=== PATIENT | male | born 2000 | race African-American/Black ===

== ENCOUNTER 2018-08-04 06:33 | Day surgery (SDC) | payer OTHER ==
[2018-08-04] VITALS (12 sets, daily range): BP systolic 106–157; BP diastolic 48–77; PULSE 48–76; RESP 13–20; Ht 190.5 cm; Wt 80.8 kg
[~2018-08-04] VITALS: Ht 190.5 cm; Wt 80.8 kg
[2018-08-04] MEDS ORDERED: LIDOCAINE 2% (SDV) 5 ML INJ ONE (07:00)
[2018-08-04] MEDS ORDERED: SEVOFLURANE 15 MIN ONE (07:00)
--- NOTE | 2018-08-04 07:53 | PREAC ---
Date/Time of Note Date/Time of Note DATE: 08/04/18 TIME: 07:51 Anesthesia Eval and Record Evaluation Time Pre-Procedure Interview DATE: 08/04/18 TIME: 07:51 Age 18 Sex male NPO: 8 hrs Preoperative diagnosis right hand osteomyelitis Planned procedure i and d right hand Past Medical History Past Medical History: Includes Pulm: Asthma Surgery & Anesthesia Issues No known issue Meds Anticoagulation: No Beta Jenniffer within 24 hr: No Reason Beta Jenniffer not given: Pt. not on B-Jenniffer Meds reviewed: Yes Allergies Coded Allergies: aspirin (Verified Allergy, Unknown, 08/04/18) ibuprofen (Verified Allergy, Unknown, 08/04/18) Allergies Reviewed: Yes Labs/Studies Labs Reviewed: Reviewed by anesthesiologist Result Diagram: 08/04/18 0635 Laboratory Tests 08/04/18 06:35 test: N/A Pre-procedure Exam Airway: Adequate mouth opening, Adequate thyromental dist Mallampati: Mallampati I Teeth: Normal Lung: Normal Heart: Normal ASA Physical Status ASA physical status: 2 Emergency: None Planned Anesthetic General/MAC: LMA Planned Pain Management Parenteral pain med Pre-operative Attestations Prior to commencing anesthesia and surgery, the patient was re-evaluated, there was verification of: *The patient's identity *The results of appropriate recent lab work and preoperative vital signs *The above evaluation not changing prior to induction *Anesthetic plan, risk benefits, alternative and complications discussed with patient/family; questions answered; patient/family understands, accepts and wishes to proceed. NADINE CAMILO Aug 04, 2018 07:53
[2018-08-04] MEDS ORDERED: VANC1.2511 IV (08:02)
[2018-08-04] MEDS ORDERED: PROPOFOL 100 ML ONE (08:15)
[2018-08-04] MEDS ORDERED: POLYMYXIN/BACITRACIN 1L IRRIG ONE (09:04)
[2018-08-04] MEDS ORDERED: BUPIVACAINE 0.5% (SDV) 30 ML INJ ONE (09:04)
[2018-08-04] MEDS ORDERED: CEFAZOLIN 1 GM INJ ONE (09:13)
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
--- NOTE | 2018-08-04 09:22 | PAC ---
Date/Time of Note Date/Time of Note DATE: 08/04/18 TIME: 09:21 Post-Anesthesia Notes Post-Anesthesia Note Last documented vital signs Vital Signs Date Temp Pulse Resp B/P (MAP) Pulse Ox O2 O2 Flow FiO2 Time Delivery Rate 08/04/18 97.9 58 20 119/68 100 0922 (85) Activity: WNL Respiratory function: WNL Cardiovascular function: WNL Mental status: Baseline Pain reasonably controlled: Yes Hydration appropriate: Yes Nausea/Vomiting absent: Yes NADINE CAMILO Aug 04, 2018 09:22
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
[2018-08-04] MEDS ORDERED: MIDAZOLAM 1 MG/ML 2 ML INJ IV PRN (09:30)
[2018-08-04] MEDS ORDERED: HYDROmorphONE 1 MG/5 ML IV SYRINGE IV PRN ×3 (09:30)
[2018-08-04] MEDS ORDERED: hydrALAzine 20 MG INJ IV PRN (09:30)
[2018-08-04] MEDS ORDERED: ONDANSETRON 4 MG INJ IV PRN (09:30)
[2018-08-04] MEDS ORDERED: ALBUTEROL 0.083% (NEB) 2.5 MG/3 ML AMP HHN PRN (09:30)
[2018-08-04] MEDS ORDERED: FENTAnyl 50 MCG/ML VIAL IV PRN ×3 (09:30)
[2018-08-04] MEDS ORDERED: EPHEDrine SULFATE 50 MG/5 ML SYG IV PRN (09:30)
[2018-08-04] MEDS ORDERED: LABETALOL HCL 20MG INJ IV PRN (09:30)
[2018-08-04] MEDS ORDERED: DIPHENHYDRAMINE 50 MG INJ IV PRN (09:30)
[2018-08-04] MEDS ORDERED: METOCLOPRAMIDE 10 MG INJ IV PRN (09:30)
[2018-08-04] MEDS ORDERED: MEPERIDINE 25 MG INJ IV PRN (09:30)
[2018-08-04] MEDS ORDERED: OXYCODONE/ACETAMINOPHEN (5/325) TAB PO PRN ×2 (09:30)
[2018-08-04] MEDS ORDERED: VANC1.5P10 IV (12:51)
[2018-08-04] MEDS ORDERED: PIPE3.374 IVPB (12:52)
== END 2018-08-04 10:30 | disposition home or self-care (01) ==
LOC: SDS 06:33
PROVIDERS: ATTEND Orthopaedic Surgery
DX: S61.252D Open bite of right middle finger without damage to nail, subsequent encounter (principal); Y04.1XXD Assault by human bite, subsequent encounter; J45.909 Unspecified asthma, uncomplicated
CPT/HCPCS: 26135; 85025; 87070; 87102; 87116; J0690; J3010; Z7512; Z7610